=== PATIENT | male | born 1965 | race Caucasian/White ===

== ENCOUNTER → 2022-07-02 | Outpatient (CLI) | payer BC, OTHER ==
[~2022-07-02] MED LIST: ANUSOL-HC25 MG PR; OMNICEF 300 MG300 MG PO; TESSALON PERLE100 MG PO; VENTOLIN HFA 66.7 GM INH; ZITHROMAX250 MG PO
[2022-07-02 09:11] LABS: HEMOGLOBIN 14.6 gm/dl (14.0-17.5); RED BLOOD COUNT 5.08 M/UL (4.20-5.50); WHITE BLOOD COUNT 7.5 K/UL (4.5-11.0)
[2022-07-02 09:32] LABS: BUN/CREATININE RATIO 16 (0-10)
[2022-07-03 08:14] LABS: HIV AB/P24 AG SCREEN Non Reactive (Non Reactive)
[2022-07-04 08:12] LABS: CREATININE, URINE 45.4 mg/dL (Not Estab.); MICROALB/CREAT RATIO <7 (0-29)
== END ==
LOC: LAB 08:39
PROVIDERS: Nurse Practitioner Family
DX: E03.9 Hypothyroidism, unspecified (principal); I25.10 Atherosclerotic heart disease of native coronary artery without angina pectoris; Z11.4 Encounter for screening for human immunodeficiency virus [HIV]
CPT/HCPCS: 36415; 80053; 80061; 82043; 82570; 82607; 83036; 84439; 84443; 85025; 87389